=== PATIENT | female | born 1975 | race Caucasian/White ===

== ENCOUNTER 2017-07-03 14:10 | Emergency (ER) | payer OTHER, MEDICAID ==
--- NOTE | 2017-07-03 16:20 | EDPHY ---
General - History Smoking Status: Current every day smoker Narrative: CHIEF COMPLAINT: Multiple complaints HISTORY OF PRESENT ILLNESS: Patient has multiple complaints. She complains of dental pain, abdominal pain, withdrawing from benzodiazepines, feeling "unstable and needing to go back there ," referred to [facility]. She says the dental pain is in the left lower tooth where she had a previous dental procedure that fell out. She has severe pain there. She has tried Anbesol [id number] without improvement. She has no trismus. She has no chest pain. She does have some abdominal pain but no dysuria. No trauma or injury. Difficult to obtain a reliable history from her as she has very pressured with her speech, exhibiting flight of ideas and tangential thought. She does tell me that she has been suicidal with multiple different plans but will not provide any details of this. No other associated complaints or modifying factors obtainable. REVIEW OF SYSTEMS: Ten systems reviewed and are negative unless otherwise noted in the HPI PCP: Does not recall SPECIALISTS: [facility] and [facility] PAST MEDICAL HISTORY: Multiple mental health diagnoses. PAST SURGICAL HISTORY: No recent surgeries to her recollection FAMILY HISTORY: Unobtainable from the patient EXAMINATION General Appearance: Alert, no distress, unkempt Head: normocephalic, atraumatic Eyes: Pupils equal and round, no conjunctival pallor or injection. EOM symmetric ENT, Mouth: Mucous membranes moist. Very poor dentition. There is no abscess but there are multiple dental caries. No trismus Neck: Normal inspection, supple, non-tender Respiratory: Lungs are clear to auscultation. No crackles, wheezing or rhonchi. Cardiovascular: Tachycardic rate. Regular rhythm. No murmur. Gastrointestinal: Abdomen is soft and nontender. No tympany rigidity. Benign abdominal examination Back: non-tender, no bony abnormalities Neurological: GCS 15. A&O, nonfocal, normal gait Skin: Warm and dry, no rash. No petechiae or purpura Extremities: Nontender, no pedal edema Psychiatric: Suicidal ideation with multiple plans. Flight of ideas, pressured speech, tangential thought and rapid cycling. DIFFERENTIAL DIAGNOSES: Including but not limited to manic episode, bipolar disorder, schizophrenia, dehydration, dental pain, suicidal ideation MDM: 4:25 p.m. Unstable patient with pressured speech, flight of ideas, tangential thought, suicidal ideation and ideas of persecution. She also has complaints of abdominal pain and dental pain left lower side. I do not appreciate any abscess but she does have very poor dentition with a tooth that likely needs to be pulled. There is no trismus. Her abdominal exam is benign. She is very anxious and tachycardic but not febrile or hypoxemic. An M1 has been completed. Were obtain laboratory studies, administering Ativan IV fluid as she does appear to be mildly dehydrated. 5:00 p.m. Patient re-evaluated. She has received her IV Ativan is starting to improve. Laboratory studies are pending. 5:30 p.m. Patient re-evaluated. She is still tachycardic and says that she has had no improvement with her Ativan. I do feel she still is mildly dehydrated, thus we will proceed with a 2nd L of IV fluid. Additionally her tachycardia may be due to pain. I will administer a dental block of the tooth. I have discussed with Dr. Sawant, and we agree she may benefit from additional 2 mg IV Ativan. She will continue to receive IV fluid resuscitation. 5:45 p.m. I have administered a dental block to the left inferior alveolar nerve. She has significant improvement in her dental pain at this time. Also at this time I have discussed the care again with Dr. Sawant and he will assume care the patient. She is pending clearance after response to Ativan IV fluid. She is calm and cooperative at this time. Please see his note for final disposition. EKG interpretation: Dr. Sawant Sinus tachycardia SUPERVISION: Patient was independently examined, but I discussed the case with my secondary supervising physician Dr. Sawant ([facility]) I took over care of this patient at 3:00 p.m.. This patient is on an M1 hold for bipolar disorder. She is being evaluated by [facility] at this time. 6:25 p.m., patient has been seen and evaluated by [facility], patient will be [facility] for [facility] psychiatric management. I have filled out the appropriate transfer paperwork. The patient's remaining emergency department course under my care has been uneventful. Patient transferred in stable condition. (Agapito Ferrell) Medical Decision MakinAM: Patient signed over to Dr. Omar Rivera at 7am shift Change. (Trevor Garcia) Patient's care was signed over to me by Dr. graves at 7:00 a.m.. Patient is re- evaluated at 7:28 a.m.. She is resting comfortably though conversational. She is stable. Labs are reviewed. Awaiting mental health evaluation 8:40 a.m. patient is slightly agitated. She also complains of mild headache. Patient is given Ativan and ibuprofen. Awaiting mental health evaluation ( Omar Rivera) - Objective Vital Signs: Initial Vital Signs Temperature (C) 37.5 C 07/03/17 14:20 Heart Rate 126 H 07/03/17 14:20 Respiratory Rate 20 07/03/17 14:20 Blood Pressure 145/95 H 07/03/17 14:20 O2 Sat (%) 94 07/03/17 14:20 O2 Delivery Mode Room Air Allergies/Adverse Reactions: disulfiram [From Antabuse] Allergy (Verified 07/03/17 14:19) Sulfa (Sulfonamide Antibiotics) Allergy (Verified 07/03/17 14:19) Home Medications: Medication Instructions Recorded Prozac 40 mg 07/03/17 Seroquel 07/03/17 Xanax 07/03/17 Laboratory Results: Laboratory Results 07/03/17 16:34 07/03/17 16:34 Microbiology Results: MICROBIOLOGY 07/03/17 17:01 Urine,Clean Catch Urine Culture - Preliminary Medications Given: Discontinued Medications Benzocaine (Hurricaine [place]) 1 each MM EDNOW ONE Stop: 07/03/17 17:37 Last Admin: 07/03/17 17:49 Dose: 1 each Sodium Chloride (Ns) 1,000 mls @ 0 mls/hr IV EDNOW ONE; Wide Open PRN Reason: Protocol Stop: 07/03/17 16:23 Last Admin: 07/03/17 16:45 Dose: 1,000 mls Sodium Chloride (Ns) 1,000 mls @ 0 mls/hr IV ONCE ONE; Wide Open PRN Reason: Protocol Stop: 07/03/17 17:27 Last Admin: 07/03/17 17:49 Dose: 1,000 mls Ibuprofen (Motrin) 600 mg PO EDNOW ONE Stop: 07/04/17 08:40 Last Admin: 07/04/17 08:51 Dose: 600 mg Lorazepam (Ativan Injection) 2 mg IVP EDNOW ONE Stop: 07/03/17 16:22 Last Admin: 07/03/17 16:46 Dose: 2 mg Lorazepam (Ativan Injection) 2 mg IVP EDNOW ONE Stop: 07/03/17 17:39 Last Admin: 07/03/17 17:49 Dose: 2 mg Lorazepam (Ativan) 1 mg PO EDNOW ONE Stop: 07/04/17 08:41 Last Admin: 07/04/17 08:51 Dose: 1 mg Lorazepam (Ativan) 1 mg PO EDNOW ONE Stop: 07/04/17 18:02 Last Admin: 07/04/17 18:02 Dose: 1 mg ED Course Discussion: Care to Dr. Ferrell at 3:00 p.m. (Omar Rivera Departure - Departure Disposition: Other Psych, Not [place] Clinical Impression: Suicidal ideation, Bipolar 1 disorder Referrals: NONE *PRIMARY CARE P,. [Primary Care Provider] - As per Instructions
[2017-07-03] MEDS ORDERED: LORazepam 2 MG/ML INJ IVP ONE ×2 (16:21→17:38)
[2017-07-03] MEDS ORDERED: NS 1,000 ML IV ONE ×2 (16:22→17:26)
[2017-07-03 16:50] LABS: PLATELET COUNT 269 10^3/uL (150-400)
[2017-07-03] MEDS ORDERED: BENZOCAINE UNIT DOSE SPRAY HURRICAINE MM ONE (17:36)
--- NOTE | 2017-07-03 17:37 | CPEKG ---
Heart Rate: 121 RR Interval: 496 P-R Interval: 128 QRSD Interval: 88 QT Interval: 336 QTC Interval: 477 P Shipman: 71 QRS Shipman: 56 T Wave Shipman: 48 EKG Severity - OTHERWISE NORMAL ECG - EKG Impression: SINUS TACHYCARDIA Electronically Signed By: Richie Sawant 03-Jul-2017 17:38:49
[2017-07-04] MEDS ORDERED: IBUPROFEN 600 MG TAB PO ONE (08:39)
[2017-07-04] MEDS ORDERED: LORazepam 1 MG TAB PO ONE ×2 (08:40→18:01)
[2017-07-04 17:52] VITALS: O2SAT 97
[2017-07-04] MEDS ORDERED: LORazepam 1 MG TAB ONE (17:59)
[2017-07-04 20:37] VITALS: BP 115/84; PULSE 94; RESP 16; TEMP 98.4
== END 2017-07-04 21:57 ==
DX: R45.851 Suicidal ideations (principal); F31.9 Bipolar disorder, unspecified; E86.9 Volume depletion, unspecified; F17.200 Nicotine dependence, unspecified, uncomplicated
CPT/HCPCS: 90791; 93005; 96361; 96374; 96376; 99285; J2060; 80305; G0480